=== PATIENT | female | born 1940 | race Caucasian/White ===

== ENCOUNTER 2023-11-13 13:30 | Outpatient (AMB) | payer MEDICARE, SELFPAY ==
--- NOTE | 2023-11-13 13:27 | A.OFFVIS_ITS ---
Intake Vital Signs 11/13/23 13:36 Height 4 ft 9 in Weight 167 lb BMI 36.1 BP 128/72 Blood Pressure Location Rt brachial Position Sitting Pulse 97 Pulse Source Pulse Oximeter Pulse Oximetry (%) 97 Oxygen Delivery Method Room Air Intake Visit Reasons: NEUROSURGICAL NURSE/ Self referral for PAD Intake Note: Pt presents to the office today for a NEUROSURGICAL NURSE self referral for PAD. Pt states she noticed her right foot changing to a bluish color back in 2020. Pt states she also had a blood clot in her left leg back in 2021. Pt states she does wear a support stocking on her left leg but not her right. Allergies alendronate sodium Allergy (Intermediate, Verified 11/13/23 13:39) Swelling fenofibrate Allergy (Intermediate, Verified 11/13/23 13:39) hair loss hydromorphone Allergy (Intermediate, Verified 11/13/23 13:39) Hives dycloxacillin Allergy (Intermediate, Uncoded 11/13/23 13:39) Dizziness HPI NEUROSURGICAL NURSE/ Self referral for PAD HPI Details Pleasant 83-year-old female presents for evaluation regarding her lower extremities. She has persistent pain and discomfort of her lower extremities. She was initially worked up by Orthopedics at [facility] for discoloration of the toes. She at that time she was informed that it was more a vascular issue. She was subsequently referred to Dr. Avalos who suggested intervention for a questionable right iliac occlusion. She was quite concerned about this and is seeking out a 2nd opinion. Of note had discoloration of the right toe. At the current time it appears to be doing relatively well. Upon discussion with her she is able to ambulate a block with her walker. She reports that it is more the bursitis of the hips which has been affecting her than walking distances. In addition in October of 2021 she was diagnosed with a left lower extremity DVT. This was diagnosed at [facility] and she has been maintained on Eliquis since that time. From a past medical history standpoint she quit smoking in and prior to that was smoking nearly a pack a day. In addition she has been a diabetic for greater than 25 years. She is currently being maintained on Eliquis and a statin. She now presents to us for vascular evaluation. [facility] Surgical History (Updated 11/13/23 @ 13:43 by Tea Oneill MA) History of total right knee replacement (~12/17/19) Social History Household Members: None Housing: House Alcohol intake: never Patient Tobacco Use Status: Never used Tobacco Use of substances other than those prescribed or required for medical reasons: No Review of Systems Const All systems reviewed & are unremarkable except as noted in HPI and below Reports no additional complaints ENT Reports Normal hearing present Card Denies chest pain, Denies chest pain at rest, Denies chest pain with activity and Denies pedal edema Resp Denies cough GI Denies abdominal pain Musc Denies abnormal gait, Denies muscle cramps and Denies radiating pain into limb Skin/Breast Denies skin ulcer and Denies wounds Neuro Reports Normal hearing present and Denies abnormal gait Psych Reports no additional complaints Physical Exam Vital Signs: Last Vital Signs Pulse 97 11/13/23 13:36 BP 128/72 11/13/23 13:36 Pulse Ox 97 11/13/23 13:36 Oxygen Delivery Method Room Air 11/13/23 13:36 BMI result Body Mass Index 36.1 Const General: cooperative, healthy appearing and comfortable Orientation/consciousness: oriented to person, oriented to place and oriented to time HEENT Head: Yes normal to inspection Neck Neck: Yes normal visual inspection Carotids: no bruits Chest Chest palpation & inspection: normal inspection of the chest Resp Effort & Inspection: normal respiratory effort and able to speak in complete sentences Auscultation: clear to auscultation bilaterally, no crackles, no rales, no rhonchi and no wheezes Cardio Other: Right side DP and PT signals. Left side palpable posterior tibial pulse Rate: regular rate Rhythm: regular rhythm Heart sounds: S1 normal heart sound present and S2 normal heart sound present Bruits: no carotid bruits Peripheral pulses: Peripheral pulses 2+ throughout GI Inspection: Yes normal to inspection Skin Wounds: no wounds Hair: normal Neuro General: oriented to person, oriented to place and oriented to time Cranial nerves: Yes CN's II-XII intact bilaterally and Yes Normal hearing present Cognition (Neuro): normal cognition Motor exam (neuro): 5/5 motor strength present throughout Extrem Other: venous exam: No significant superficial varicosities or spider telangiectasias, minimal edema General: No clubbing, No cyanosis and No edema Psych Appearance: grossly normal Mental Status: mental status grossly normal Speech and movement: Normal speech and movement present Assessment & Plan Assessment & Plan (1) PAD (peripheral artery disease): Code(s): I73.9 - Peripheral vascular disease, unspecified Plan: In short the patient does have an element of peripheral vascular disease. She does have risk factors including diabetes and a remote history of smoking. That being said I do not believe that this is activity limiting at the current time. I believe her hips are more of an issue. I did discuss this in detail with the patient. I do not believe intervention is indicated at the current time. We did discuss the importance of risk factor modification including strict diabetes control and the importance of walking and exercise. I have taken the liberty of ordering noninvasive arterial testing to get a baseline of that. She will follow up with us after testing. Thank you for allowing us to assist in her care. Should there be any questions or concerns please do not hesitate to contact us. (2) DVT (deep venous thrombosis): Code(s): I82.409 - Acute embolism and thrombosis of unspecified deep veins of unspecified lower extremity Qualifiers: DVT location: lower extremity Affected thrombotic vein of extremity: unspecified vein of extremity Chronicity: chronic Laterality: left Qualified Code(s): I82.502 - Chronic embolism and thrombosis of unspecified deep veins of left lower extremity Plan: She does have a prior history of a DVT. This is dating back to October of 2021. At the current time she is being maintained on Eliquis. At some point would like to reassess the status of her DVT. It does appear that this was an unprovoked event. We will continue to monitor her for her arterial status. Thank you for allowing us to assist in her care. If there are any questions or concerns please do not hesitate to contact us. Plan The patient had an opportunity to ask questions regarding the treatment plan. All questions were answered. Imaging studies, laboratory studies and physical exam results were discussed and reviewed in detail. No major barriers to understanding were identified. The patient expressed understanding and agreement with the above treatment plan. The patient is aware they should contact our office by phone for worsening of the current condition or the appearance of new symptoms. Thank you for allowing me to participate in the vascular care of this patient. If you have any questions or concerns regarding the treatment for the above condition please do not hesitate to contact me. The office telephone contact is [phone]. This note is constructed using voice recognition software. While every effort has been made to ensure accuracy, delivery table feeder errors may have been i ncluded. Thank you for allowing me to participate in the care of your patient. Yours sincerely, Guy Lou MD, FACS, R.P.V.I. 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
[2023-11-13 13:36] VITALS: BP 128/72; PULSE 97; O2SAT 97; BMI 36.1
== END 2023-11-13 14:38 | disposition home or self-care (01) ==
PROVIDERS: Visit Provider Surgery Vascular Surgery
DX: I73.9 Peripheral vascular disease, unspecified (principal); I82.502 Chronic embolism and thrombosis of unspecified deep veins of left lower extremity
CPT/HCPCS: 99203

== ENCOUNTER → 2023-11-13 13:30 | Outpatient (BNVA) | payer MEDICARE, SELFPAY | PROVIDERS: Visit Provider Surgery Vascular Surgery | DX: I73.9 Peripheral vascular disease, unspecified (principal); I82.502 Chronic embolism and thrombosis of unspecified deep veins of left lower extremity | CPT/HCPCS: 99202 ==

== ENCOUNTER 2023-12-10 13:30 | Outpatient (REF) | payer MEDICARE, SELFPAY ==
--- NOTE | ~2023-12-10 | US_ITS ---
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 COMPARISON: None available. TECHNIQUE: The ankle/brachial indices of the distal posterior tibial and the dorsalis pedis arteries were obtained of the lower extremity arterial system bilaterally; along with pressures and pulse volume recordings at the ankle level. The study was performed at rest. Gramajo-scale, color Doppler and spectral Doppler evaluation of the abdominal aorta. FINDINGS: RIGHT LE. THE RIGHT ANKLE-BRACHIAL INDEX IS: 0.72 noncompressibility/calcification. 2. SEGMENTAL PRESSURES (mmHg): Ankle: PT 82, DP 109 3. PVR WAVEFORMS: Ankle: Abnormal 4. DIRECT DUPLEX: Common femoral artery: 56.8 cm/s, monophasic Profunda femoris artery: 39.4 cm/s, monophasic Superficial femoral artery (proximal): 44.6 cm/s, monophasic Superficial femoral artery (mid): 39.4 cm/s, monophasic Superficial femoral artery (distal): 45.8 cm/s, monophasic Proximal Popliteal artery: 44.3 cm/s, monophasic Distal popliteal artery: 49.2 cm/s, monophasic Mid posterior tibial artery: 31 cm/s, monophasic Peroneal artery: Occluded versus calcified LEFT LE. THE LEFT ANKLE-BRACHIAL INDEX IS: 0.79 (higher of the DP/PT) 2. SEGMENTAL PRESSURES: Ankle: PT 120, DP 115 3. PVR WAVEFORMS: Ankle: Normal 4. DIRECT DUPLEX: Common femoral artery: 97.9 cm/s, biphasic Profunda femoris artery: 60.9 cm/s, biphasic Superficial femoral artery (proximal): 97.8 cm/s, biphasic Superficial femoral artery (mid): 77.5 cm/s, biphasic Superficial femoral artery (distal): 77.5 cm/s, Multiphasic Proximal Popliteal artery: 74 cm/s, Multiphasic Distal popliteal artery: 90 cm/s, Multiphasic Mid posterior tibial artery: 68.4 cm/s, Multiphasic Peroneal artery: Occluded versus calcified The aorta is normal. The measurements of the aorta in maximum AP and transverse dimensions respectively are as follows: Proximal: 2.3 cm. Mid: 1.8 cm. Distal: 1.9 cm. PSV: 81.9 cm/s. The common iliac arteries are scattered from view bilaterally to bowel gas and body habitus. Right external iliac artery: 66 cm/sec Left external iliac artery: 110.2 cm/sec US/US arterial duplex BI w/ CAITLIN IMPRESSION: 1. Right leg: Moderate peripheral arterial disease. 2. Left leg: No evidence of hemodynamically significant stenosis. 3. The visualized abdominal aorta is normal in caliber. No evidence of aneurysm. Normal aortic waveforms and systolic velocities.
--- NOTE | ~2023-12-10 | US_ITS ---
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 COMPARISON: None available. TECHNIQUE: The ankle/brachial indices of the distal posterior tibial and the dorsalis pedis arteries were obtained of the lower extremity arterial system bilaterally; along with pressures and pulse volume recordings at the ankle level. The study was performed at rest. Gramajo-scale, color Doppler and spectral Doppler evaluation of the abdominal aorta. FINDINGS: RIGHT LE. THE RIGHT ANKLE-BRACHIAL INDEX IS: 0.72 noncompressibility/calcification. 2. SEGMENTAL PRESSURES (mmHg): Ankle: PT 82, DP 109 3. PVR WAVEFORMS: Ankle: Abnormal 4. DIRECT DUPLEX: Common femoral artery: 56.8 cm/s, monophasic Profunda femoris artery: 39.4 cm/s, monophasic Superficial femoral artery (proximal): 44.6 cm/s, monophasic Superficial femoral artery (mid): 39.4 cm/s, monophasic Superficial femoral artery (distal): 45.8 cm/s, monophasic Proximal Popliteal artery: 44.3 cm/s, monophasic Distal popliteal artery: 49.2 cm/s, monophasic Mid posterior tibial artery: 31 cm/s, monophasic Peroneal artery: Occluded versus calcified LEFT LE. THE LEFT ANKLE-BRACHIAL INDEX IS: 0.79 (higher of the DP/PT) 2. SEGMENTAL PRESSURES: Ankle: PT 120, DP 115 3. PVR WAVEFORMS: Ankle: Normal 4. DIRECT DUPLEX: Common femoral artery: 97.9 cm/s, biphasic Profunda femoris artery: 60.9 cm/s, biphasic Superficial femoral artery (proximal): 97.8 cm/s, biphasic Superficial femoral artery (mid): 77.5 cm/s, biphasic Superficial femoral artery (distal): 77.5 cm/s, Multiphasic Proximal Popliteal artery: 74 cm/s, Multiphasic Distal popliteal artery: 90 cm/s, Multiphasic Mid posterior tibial artery: 68.4 cm/s, Multiphasic Peroneal artery: Occluded versus calcified The aorta is normal. The measurements of the aorta in maximum AP and transverse dimensions respectively are as follows: Proximal: 2.3 cm. Mid: 1.8 cm. Distal: 1.9 cm. PSV: 81.9 cm/s. The common iliac arteries are scattered from view bilaterally to bowel gas and body habitus. Right external iliac artery: 66 cm/sec Left external iliac artery: 110.2 cm/sec US/US abdominal aortic aneurysm IMPRESSION: 1. Right leg: Moderate peripheral arterial disease. 2. Left leg: No evidence of hemodynamically significant stenosis. 3. The visualized abdominal aorta is normal in caliber. No evidence of aneurysm. Normal aortic waveforms and systolic velocities.
== END 2023-12-10 13:31 | disposition home or self-care (01) ==
LOC: HO.US 13:30
PROVIDERS: Visit Provider Surgery Vascular Surgery
DX: I73.9 Peripheral vascular disease, unspecified (principal)
CPT/HCPCS: 76706; 93922; 93925

== ENCOUNTER 2024-01-20 13:05 | Outpatient (AMB) | payer MEDICARE, SELFPAY ==
[2024-01-20 13:10] VITALS: BMI 36.1
--- NOTE | 2024-01-20 13:10 | MHC.OFFVIS ---
Intake Vital Signs 01/20/24 13:10 Height 4 ft 9 in Weight 167 lb BMI 36.1 Intake Visit Reasons: F/U Arterial U/S 12/10/23 Information Interpreted: non-clinical & clinical Accompanied by: Daughter Allergies alendronate sodium Allergy (Intermediate, Verified 01/20/24 13:13) Swelling fenofibrate Allergy (Intermediate, Verified 01/20/24 13:13) hair loss hydromorphone Allergy (Intermediate, Verified 01/20/24 13:13) Hives dycloxacillin Allergy (Intermediate, Uncoded 01/20/24 13:13) Dizziness HPI F/U Arterial U/S 12/10/23 HPI Details Very pleasant 83-year-old female presents for follow-up regarding her lower extremity pain and discomfort. She has been worked up by Orthopedics. In addition she had been seen by Dr. Avalos regarding a right iliac occlusion. He would recommended intervention at that time and came to us for 2nd opinion. Upon discussion with her she is able to walk about a block with her walker. She does report that it is more so the bursitis of the hips that seemed to be an issue for her. In addition in October of 2021 she was diagnosed with a left lower extremity DVT. She has been a longstanding diabetic. She quit smoking in . She is currently being maintained on Eliquis as a statin. She has had noninvasive testing and now presents for follow-up. [facility] Surgical History History of total right knee replacement (~12/17/19) Social History Household Members: None Housing: House Alcohol intake: never Patient Tobacco Use Status: Never used Tobacco Review of Systems Const All systems reviewed & are unremarkable except as noted in HPI and below Reports no additional complaints ENT Reports Normal hearing present Card Denies chest pain, Denies chest pain at rest, Denies chest pain with activity and Denies pedal edema Resp Denies cough GI Denies abdominal pain Musc Denies abnormal gait, Denies muscle cramps and Denies radiating pain into limb Skin/Breast Denies skin ulcer and Denies wounds Neuro Reports Normal hearing present and Denies abnormal gait Psych Reports no additional complaints Physical Exam Vital Signs: BMI result Body Mass Index 36.1 Const General: cooperative, healthy appearing and comfortable Orientation/consciousness: oriented to person, oriented to place and oriented to time HEENT Head: Yes normal to inspection Neck Neck: Yes normal visual inspection Carotids: no bruits Chest Chest palpation & inspection: normal inspection of the chest Resp Effort & Inspection: normal respiratory effort and able to speak in complete sentences Auscultation: clear to auscultation bilaterally, no crackles, no rales, no rhonchi and no wheezes Cardio Other: Bilateral DP signals Rate: regular rate Rhythm: regular rhythm Heart sounds: S1 normal heart sound present and S2 normal heart sound present Bruits: no carotid bruits Peripheral pulses: Peripheral pulses 2+ throughout GI Inspection: Yes normal to inspection Skin Wounds: no wounds Hair: normal Neuro General: oriented to person, oriented to place and oriented to time Cranial nerves: Yes CN's II-XII intact bilaterally and Yes Normal hearing present Cognition (Neuro): normal cognition Motor exam (neuro): 5/5 motor strength present throughout Extrem Other: venous exam: No significant superficial varicosities or spider telangiectasias, minimal edema General: No clubbing, No cyanosis and No edema Psych Appearance: grossly normal Mental Status: mental status grossly normal Speech and movement: Normal speech and movement present Results Reviewed Results Reviewed: Noninvasive testing dated 12/10/2023 demonstrates CAITLIN on the right of 0.72 and on the left 0.79. Right leg there is concern of inflow disease with iliac occlusion. Assessment & Plan Assessment & Plan (1) PAD (peripheral artery disease): Code(s): I73.9 - Peripheral vascular disease, unspecified Plan: In short patient has stable claudication. I did review the findings with her and demonstrated on the posterior. In addition the patient is able to carry out her daily activities. I did review the pathophysiology of peripheral vascular disease with the patient. In addition we did discuss routine conservative measures including a healthy diet and the importance of exercise and ambulation. We did discuss risk factor modification. The patient will continue to to follow-up with surveillance follow-up in approximately 6 months. Thank you for allowing us to participate in this patient's care. If there are any questions or concerns please do not hesitate to contact us. Orders: Orders US arterial duplex LE BI 6 Months I73.9 - Peripheral vascular disease, unspecified Coding Level of Care Code Est Pt Level 4 (45103) Diagnoses PAD (peripheral artery disease) I73.9
== END 2024-01-20 13:53 | disposition home or self-care (01) ==
PROVIDERS: Visit Provider Surgery Vascular Surgery
DX: I73.9 Peripheral vascular disease, unspecified (principal)
CPT/HCPCS: 99213

== ENCOUNTER → 2024-01-20 13:05 | Outpatient (BNVA) | payer MEDICARE, SELFPAY | PROVIDERS: Visit Provider Surgery Vascular Surgery | DX: I73.9 Peripheral vascular disease, unspecified (principal); Z86.718 Personal history of other venous thrombosis and embolism | CPT/HCPCS: 99212 ==

== ENCOUNTER 2025-02-28 13:51 | Outpatient (REF) | payer MEDICARE, SELFPAY ==
--- NOTE | ~2025-02-28 | US_ITS ---
EXAMINATION: Noninvasive assessment of the bilateral lower extremities with ARTERIAL DUPLEX, ANKLE BRACHIAL INDICES (ABIs), and PULSE VOLUME RECORDINGS (PVRs). SPECTRAL DOPPLER ARTERIAL ULTRASOUND ABDOMINAL AORTA AND ILIAC ARTERIES. CLINICAL INFORMATION: Peripheral vascular disease. TECHNIQUE: Duplex Doppler techniques with waveform analysis and measurement of velocities in the bilateral common femoral, profunda femoris, superficial femoral, popliteal and tibial arteries were performed. Additionally, ankle pulse volume recordings, ankle pressure measurements and ankle brachial indices were obtained of the lower extremity arterial system bilaterally. The study was performed only at rest. Color Doppler interrogation of the abdominal aorta and iliac arteries. COMPARISON: None FINDINGS: Calcified plaques throughout the interrogated arteries. Patient's large body habitus. DIRECT DUPLEX DOPPLER FINDINGS: RIGHT LEG: Common femoral artery: 60 cm/s, phasicity: Monophasic. Profunda femoris artery: 26 cm/s, phasicity: Monophasic. Superficial femoral artery (proximal): 48 cm/s, phasicity: Monophasic. Superficial femoral artery (mid): 48 cm/s, phasicity: Monophasic. Superficial femoral artery (distal): 31 cm/s, phasicity: Monophasic. Popliteal artery: 45 cm/s, phasicity: Monophasic. Posterior tibial artery: 43 cm/s, phasicity: Monophasic. Peroneal artery: 35 cm/s, phasicity: Monophasic. Anterior tibial artery: 28 cm/s, phasicity: Monophasic. Dorsalis pedis artery: 27 cm/s, phasicity:Monophasic. LEFT LEG: Common femoral artery: 70 cm/s, phasicity: Biphasic. Profunda femoris artery: 33 cm/s, phasicity: Monophasic. Superficial femoral artery (proximal): 98 cm/s, phasicity: Triphasic Superficial femoral artery (mid): 73 cm/s, phasicity: Triphasic. Superficial femoral artery (distal): 46 cm/s, phasicity: Biphasic. Popliteal artery: 52 cm/s, phasicity: Biphasic. Posterior tibial artery: 40 cm/s, phasicity: Monophasic. Peroneal artery: 42 cm/s, phasicity: Monophasic. Anterior tibial artery: 40 cm/s, phasicity: Monophasic. Dorsalis pedis artery: 10 cm/s, phasicity: Monophasic. BRACHIAL PRESSURES: Right: 144 Left: 135 ANKLE PRESSURES: Right: PT 78, DP 90 Left: PT 152, DP 124 ANKLE-BRACHIAL INDEX: Right: 0.63 Left: 1.06 ANKLE PVR WAVEFORMS: Right: Abnormal Left: Abnormal ABDOMINAL AORTA: Proximal segment measures 2 cm in maximum diameter. No color Doppler interrogation due to patient's body habitus. Midsegment measures 1.7 cm. No color Doppler interrogation due to patient's body habitus. Distal segment: 1.6 cm and peak systolic velocity 56 cm/s Right iliac artery: Common iliac artery: 67 cm/s. External iliac artery: 58 cm/s. Left iliac artery: Common iliac artery: 96 cm/s. External iliac artery: 99 cm/s. US/US arterial duplex BI w/ CAITLIN IMPRESSION: Right leg: Severe inflow disease throughout the interrogated arteries. Left leg: Moderate to severe inflow disease throughout the interrogated arteries. Inadequate evaluation of the abdominal aorta demonstrated no gross aneurysm. CAITLIN Reference: - >1.4 = calcified vessels - 0.9 - 1.4 = normal - no significant arterial disease - 0.7 - 0.89 = mild peripheral arterial disease - 0.51 - 0.69 = moderate peripheral arterial disease - d 0.50 = severe peripheral arterial disease - < .30 = critical arterial disease Electronically signed by: Jairo Singh MD 02/28/2025 03:52 PM EDT
--- OUTSIDE RECORDS SUMMARY | 2025-02-28 15:24 | XMS_ITS | Patient Health Record ---
Author Organization [facility] Address [address] [place] [address] Care Team Providers Care Manager Transport Name Role Phone DR NIRAJ SIFUENTES M.D. Primary Care Provider Unavail able Moriah Willard Unavailable [phone] Allergies Allergen (clinical drug ingredient) Drug/Non Drug Allergy documented on EMR Reaction Allergy Type Onset Date Status alendronate Alendronate Sodium throat constriction Drug Allergy Active dicloxacillin Dicloxacillin Sodium Unknown Drug Allergy Active fenofibrate Fenofibrate hair loss Drug Allergy Act dorinda hydromorphone Hydromorphone Unknown Drug Allergy Active Reason For Referral No Information Medications Medication SIG (Take, Route, Frequency, Duration) Notes Start Date End Date Status Omeprazole 20 MG 2 capsules Orally On ce a day Active metFORMIN HCl ER 500 MG 1 tablet with ev ening meal Orally Once a day Active Nifedical XL 30 MG 1 tablet Orally Once a day Active Eliquis 5 MG 1 tablet Orally Twic e a day for 90 days Active Atorvastatin Calcium 40 MG Oral for 90 Active Vitamin D3 1000 UNIT 1 capsule Orally On ce a day Active Lisinopril 20 MG 1 tablet Orally Once a day Active Caltrate 600+D 600-800 MG-UNIT 1 tablet Orally Twice a day Active Social History Tobacco Use: Social History Observation Description Date Details (start date - stop date) Former Smoker NA - NA Sexual History Question Answer Notes Had sex in the past 12 months (vaginal, oral, or anal)? No AUDIT-C (Standard) Question Answer Notes Did you have a drink containing alcohol in the p ast year? No Points 0 Interpretation Negative Tobacco Control (Standard) Question Answer Notes Tobacco use: Former smoker How long has it been since you last smoked? Grea ter than 10 years Problems Problem Type SNOMED Code ICD Code Onset Dates Problem Status W/U Status Risk Notes Problem Postmenopausal atrophic vaginitis (83499096) Postmenopausal atrophic vaginitis (N95.2) Active confirmed Problem Age-related osteoporosis without current pathological fracture (M81.0) Active confirmed Problem Malignant tumor of lung (935482531) Malignant neoplasm of unspecified part of unspecified bronchus or lung (C34.90) Active confirmed Vital Signs Temperature 97.9 degrees Fahrenheit 02/07/2025 Blood pressure diastolic 76 mm Hg 02/07/2025 Height 4 ft 10 in in 02/07/2025 Blood pressure systolic 128 mm Hg 02/07/2025 Weight 162 lbs 02/07/2025 BMI 33.85 kg/m2 02/07/2025 Encounters Encounter Location Date Provider Diagnosis [address] [place] [address] 02/07/2025 Moriah Willard Encounter for gynecological examination (general) (routine) without abnormal findings Z01.419 ; Encounter for screening mammogram for malignant neoplasm of breast Z12.31 ; Age-related osteoporosis without current pathological fracture M81.0 and Postmenopausal atrophic vaginitis N95.2 Assessments Encounter Date Diagnosis (ICD Code) Assessment Notes Treatment Notes Treatment Clinical Notes Section Notes 02/07/2025 Encounter for gynecological examination (general) (routine) without abnormal findings (ICD-10 - Z01.419) NO MORE PAP TESTS. 02/07/2025 Encounter for screening mammogram for malignant neoplasm of breast (ICD-10 - Z12.31) REGULAR MAMMOGRAMS AND SBE'S WERE RECOMMENDED. 02/07/2025 Age-related osteoporosis without current pathological fracture (ICD-10 - M81.0) DISCUSSED OSTEOPOROSIS AND ITS IMPACT ON HER HEALTH, ADEQUATE CALCIUM AND VIT D. WEIGHT BEARING EXERCISES. OSTEO PRECAUTIONS. REPEAT BMD NEXT YEAR. CONTINUE CARE WITH DR ARRIOLA. 02/07/2025 Postmenopausal atrophic vaginitis (ICD-10 - N95.2) DISCUSSED FINDINGS, DX AND TX OPTIONS. PAT IS ASYMPTOMATIC. Plan Of Treatment Pending Test Test Name Order Date MAMMOGRAM, SCREENING 2021 MAMMOGRAM, SCREENING 02/06/2023 MAMMOGRAM, SCREENING 02/07/2025 BONE DENSITY 02/06/2023 BONE DENSITY 02/07/2025 BONE DENSITY 2021 MM Digital Mammo Screening 2021 MM Digital Mammo Screening 02/06/2023 MM Digital Mammo Screening 02/07/2025 Insurance Providers Payer Name Payer Address Payer Phone Subscriber Number Group Number Insured Name Patient Relationship to Insured Coverage Start Date Coverage End Date MEDICARE [address] [place], [place] [id number] NISREEN SCOTT Self - patient is the insured [facility] [address] [place] [address] [id number] NISREEN SCOTT Self - patient is the insured Medical (General) History Medical History History ICD Code Age-related osteoporosis without current pathological fracture M81.0 Postmenopausal atrophic vaginitis N95.2 Essential (primary) hypertension I10 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
--- OUTSIDE RECORDS SUMMARY | 2025-02-28 15:24 | XMS_ITS | Encounter Summary ---
Author Organization [facility] Address [address] [place] [address] Care Team Providers Care Advertisement Compositor Name Role Phone Unavailable Primary Care Provider Unavailabl e Encounter Details Date Type Department Care Team (Late st Contact Info) Description 11/09/2021 Scanned Document [facility] [place] [address] [address] Cardiology, Scan Social History Tobacco Use Types Packs/Day Years Used Date Smoking Tobacco: Never Assessed Comments Unknown Sex and Gender Information Value Date Recorded Sex Assigned at Not on file Legal Sex Female 4:57 PM EDT Gender Identity Not on file Sexual Orientation Not on file documented as of this encounter Plan of Treatment Not on file documented as of this encounter Visit Diagnoses Not on filedocumented in this encounter
--- OUTSIDE RECORDS SUMMARY | 2025-02-28 15:24 | XMS_ITS | Clinical Summary ---
Author Organization [facility] Address [address] [place] [address] Care Team Providers Care Database Engineer Name Role Phone Unavailable Primary Care Provider Unavailabl e Social History Tobacco Use Types Packs/Day Years Used Date Smoking Tobacco: Never Assessed Comments Unknown Sex and Gender Information Value Date Recorded Sex Assigned at Not on file Legal Sex Female 4:57 PM EDT Gender Identity Not on file Sexual Orientation Not on file Plan of Treatment Health Maintenance Due Date Last Done Comments DTaP/Tdap/Td Vaccines (1 - Tdap) 1959 Pneumococcal Vaccines 50+ (1 of 1 - PCV) 02/01/1988 Zoster (Shingles) Vaccine (1 of 2) 02/01/1988 RSV Vaccine 60 years and old er and Patients (1 - 1-dose 75+ series) 2013 COVID-19 Vaccine (2023-2 5 season) 2024 Hepatitis B Vaccines Aged Out No long er eligible based on patient's age to complete this topic
--- OUTSIDE RECORDS SUMMARY | 2025-02-28 15:24 | XMS_ITS ---
Author Name [facility] Organization Unknown Care Team Organization Name Specialty Phone Email Start Date End [facility]
--- OUTSIDE RECORDS SUMMARY | 2025-02-28 15:24 | XMS_ITS | Continuity of Care Document ---
Author Organization [place] - [facility], [facility] [address] Address [address] [place] [address] Care Team Providers Care Inspector Cold Working Name Role Phone NIRAJ SIFUENTES Primary Care Provider Assessment Encounter Date Assessment Date Assessment LastModified by Organization Details LastModified Time 02/25/2025 02/25/2025 A/ L CMC OA, L index and ring trigger finger, index finger recurrent after 1 prior cortisone injection findings on her exam and imaging have been reviewed. Treatment options for each of these problems have been reviewed. She P/ Elected to try a left thumb CMC injection as well as reinjection in the left index finger flexor tendon sheath and first injection into the left ring finger flexor tendon sheath. Follow-up for each of these problems will be on an as-needed basis. She reports that she has a brace at home that she has been using. justo Not available 02/25/2025 15:13:33 Plan of Treatment Reminders Order Date Submit Date Provider Last Modified By Organization Details Last Modified Time Details Appointments None record ed. Lab None record ed. Referral None record ed. Procedures None record ed. Surgeries None record ed. Imaging XR, hand, 3 or more view - room 114 3V L TMJ 025 02/26/20 [facility], [address], [facility] [address], [place], [address], 14:37:42 Medication Orders None record ed. Patient TargetsNo targets recorded. Patient InstructionsNo instructions recorded. Reason for Referral None Reported. Results Created Date Observation Date Name Description Value Unit Range Abnormal Flag Note LastModifiedBy Organization Detail LastModifiedTime 02/26/20 25 02/25/2025 XR, hand, 3 or more view http:/ [email or web address] ?Encry pted=s hAaTro YD8dLq bEUv6g %2BXZw aYqtaq 0bqfl% 2Fg9IQ a4ajBk vP9nXo QUaueC m3YtLR FvZlgJ JJ8mAn HZtai3 [id number] AC0Kla niHUKu lKiQtr MwF INTERFACE [facility] [address], [place], [address], 02/25/2025 14:03:01 02/26/20 25 02/25/2025 XR, hand, 3 or more view [email or web address] ?Encry pted=s hAaTro YD8dLq bEUv6g %2BXZw aYqtaq 0bqfl% 2Fg9IQ a4ajBk vP9nXo QUaueC m3YtLR FvZlgJ JJ8mAn HZtai3 [id number] AC0Kla niHUKu lKiQtr MwF INTERFACE [facility] [address], [place], [address], 02/25/2025 14:03:05 Result Notes None recorded. 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 4 15:11:19 Problem Notes None recorded. Procedures Surgical History Date Name Laterality Status Provider Name and Address Organization Details Recorded Time 5 [facility] Inj completed Terri Mckoy MD [address], [place], [address], [facility] 02/25/2025 14:11:08 5 JZMulti Trigger Finger Injection completed Terri Mckoy MD [address] [place] [address] [address], [place], [address], [facility] 02/25/2025 14:12:34 Imaging Results None recorded. Procedure Notes None recorded. Medical Equipment None Reported. Allergies Allergen ID Allergen Name Allergen Category Reaction Reaction Severity Criticality Documentation Date Start Date Code Code System Note Provider Name and Address Organization Details Recorded Time 321130 alendrona te sodium medicatio n Not available Not available Not available 02/25/202587101 2 RxNorm JERAMIE MANDY [facility], [facility] 5 13:54:38 991655 cefuroxim e Not available Not available Not available Not available 02/25/2025 2194 RxNorm JERAMIE MANDY [facility] 5 13:54:46 412410 dicloxaci llin medicatio n Not available Not available Not available 02/25/2025 3356 RxNorm JERAMIE MANDY [facility], [facility] 5 13:54:54 874042 fenofibra te medicatio n Not available Not available Not available 02/25/2025 8703 RxNorm JERAMIE MANDY [facility], [facility] 5 13:55:02 196105 hydromorp jacque medicatio n Not available Not available Not available 02/25/2025 3423 RxNorm JERAMIE MANDY [facility], [facility] 5 13:55:11 125850 lisinopri l medicatio n Not available Not available Not available 02/25/2025 75504 RxNorm JERAMIE MANDY [facility], [facility] 5 13:55:19 Medications Name Sig Start Date Stop Date Status Note LastModified by Organization Details LastModified Time nifedipine ER 30 mg tablet,exte nded release 24 hr active Not Available Not Available Not Available amoxicillin 500 mg capsule TAKE 4 CAPSULES BY MOUTH 1 HOUR BEFORE PROCEDURE active Not Available Not Available No t Available atorvastati n 40 mg tablet active Not Available Not Available Not Available metformin 500 mg tablet active Not Available Not Available Not Available cetirizine 10 mg tablet TAKE 1 TABLET BY MOUTH EVERY DAY active Not Available Not Available No t Available prochlorper azine maleate 5 mg tablet TAKE 1 TABLET BY MOUTH EVERY 6 HOURS NEEDED FOR NAUSEA active Not Available Not Available No t Available meloxicam 15 mg tablet TAKE 1 TABLET BY MOUTH EVERY NIGHT AT BEDTIME active Not Available Not Available No t Available lisinopril 20 mg tablet active Not Available Not Available Not Available prednisone 20 mg tablet TAKE 3 TABS BY MOUTH DAILY X5 DAYS, 2+1/2 TABS DAILY X7 DAYS, 2 TABS DAILY X7 DAYS, 1+1/2 TABS DAILY X7 DAYS, 1 TAB DAILY X7 DAYS, THEN 1/2 TAB DAILY X7 DAYS active Not Available Not Available No t Available tramadol 50 mg tablet TAKE 1 TABLET BY MOUTH TWICE DAILY FOR 7 DAYS NEEDED FOR PAIN. DO NOT DRIVE WHILE TAKING THIS MEDICATIO N active Not Available Not Available No t Available ondansetron 8 mg disintegrat ing tablet DISSOLVE 1 TABLET ON THE TONGUE EVERY 8 HOURS NEEDED FOR NAUSEA OR VOMITING active Not Available Not Available No t Available lidocaine-p rilocaine 2.5 %-2.5 % topical cream APPLY A DIME-SIZE D AMOUNT OVER PORT AND COVER WITH PLASTIC 1 HOUR BEFORE PORT USE active Not Available Not Available No t Available famotidine 20 mg tablet TAKE 1 TABLET BY MOUTH TWICE DAILY active Not Available Not Available No t Available nitrofurant oin macrocrysta l 100 mg capsule TAKE 1 CAPSULE BY MOUTH TWICE DAILY FOR 5 DAYS active Not Available Not Available No t Available omeprazole 20 mg capsule,del ayed release active Not Available Not Available Not Available gabapentin 100 mg capsule TAKE 1 CAPSULE BY MOUTH 1 TIME AT BEDTIME active Not Available Not Available No t Available Ventolin HFA 90 mcg/actuati on aerosol inhaler active Not Available Not Available Not Available nitrofurant oin monohydrate /macrocryst als 100 mg capsule TAKE 1 CAPSULE BY MOUTH TWICE DAILY FOR 7 DAYS WITH FOOD active Not Available Not Available No t Available oxycodone HCl-oxycodo ne-ASA 1 every 4 - 6 hours as needed prn painDO NOT DRIVE WHILE TAKING THIS MEDICATIO N 01/07 completed Statu s: 'Disc ontin ued'; Not Available Not Available Not Available Accu-Chek Angelique Plus test strips TEST BLOOD GLUCOSE EVERY DAY active Not Available Not Available No t Available Eliquis 5 mg tablet active Not Available Not Available No t Available Accu-Chek Fastclix Lancet Drum USE TO TEST BLOOD SUGAR DAILY active Not Available Not Available No t Available Vitals Date Recorded Body height Body mass index (BMI) Body weight Provider Name and Address Organization Details Last Updated DateTime 02/25/2025 144.78 cm 35.1 kg/m2 29220.96 g JERAMIE GAVLAN [place] - [facility] 02/25/2025 13:51:31 Social History None recorded. Functional Status None recorded. Mental Status None recorded. Family History Nothing Reported. Medical History No medical history recorded. Gynecological HistoryNo gynecological history recorded. Obstetrics History GPAL:G 0 P 0 0 0 0 Past Encounters Encounter ID Performer Location Encounter Start Date Encounter Closed Date Diagnosis/Indication Diagnosis SNOMED-CT Code Diagnosis ICD10 Code Diagnosis Note [id number] MD [facility] [place] [address] [facility] [place] [address] 02/25/2025 13:31:00 02/25/2025 15:14:42 Pain of left hand 2336734695 43336 M79.642 Triggering of digit 2399 05508 M65.322 M65.342 Health Concerns Section Related Observation LastModified by Organization Detai ls LastModified Time None Recorded Concern Status LastModified by Organization Details LastModified Time None Recorded Payers Encounter Date Sequence Insurance Name Policy Number Policy De [place] Covered Member ID De La Paz Member ID Guarantor Name 02/25/2025 1 [place]IC[place]: [employer] Dianaeder Salas [employer] [id number] Emily Candelario 02/25/2025 2 [employer] OPTIONS (MEDICARE SUPPLEMENT) Emily Candelario [id number] Emily Candelario Notes Date Note Type Note Provider Name and Address Organization Details Recorded Time 02/25/2025 text/html Patient is an 85-year-old female last seen in May 2023 for a left index trigger finger, here today for eval of left hand pain, she has thumb pain, and recurrent L index trigger finger, as well as a new left ring trigger. Her Left thumb is aggravated by pinch and siphoner activities. Terri Mckoy MD [address] [facility] [address], [place], [address], [facility] - [facility] 02/25/2025 15:14:41 OBGyn Episode No OBEpisode recorded.
--- OUTSIDE RECORDS SUMMARY | 2025-02-28 15:25 | XMS_ITS | Clinical Summary ---
Author Organization [facility] Address [address] [place] [address] Care Team Providers Care Gardening Instructor Name Role Phone Raul Salinas MD Primary Care Provider [phone] Allergies Active Allergy Reactions Criticality Noted Date Comments Dicloxacillin 08/01/2020 Fenofibrate 08/01/2020 Medications Medication Sig Dispensed Refills Start Date End Date Status lisinopril (PRINIVIL,ZESTRIL) tablet 10 mg Take 10 mg by mouth daily. 0 Active NIFEdipine (PROCARDIA XL) 30 MG 24 hr tablet Take 30 mg by mouth daily. 0 Active aspirin 81 MG EC tablet Take 81 mg by mouth daily. 0 Active omeprazole (PriLOSEC) 20 MG capsule Take 20 mg by mouth daily. 0 Active hydrOXYzine (ATARAX) 10 MG tablet Take 10 mg by mouth 3 (three) times a day as needed for itching. 0 Active vitamin D3 (VITAMIN D3) 25 MCG (1000 UT) tablet Take 1,000 Units by mouth 3 (three) times a week. 0 Active metFORMIN (GLUCOPHAGE) tablet 500 mg Take 500 mg by mouth every morning with breakfast. 0 Active pravastatin (PRAVACHOL) tablet 20 mg Take 20 mg by mouth daily. 0 Active Calcium Carbonate-Vit D-Min (CALTRATE 600+D PLUS MINERALS) 600-800 MG-UNIT CHEW Chew by mouth. 0 Active Newberry-3 Fatty Acids (FISH OIL) 1000 MG CAPS Take by mouth. 0 Active Social History Tobacco Use Types Packs/Day Years Used Date Smoking Tobacco: Never Assessed Sex and Gender Information Value Date Recorded Sex Assigned at Not on file Gender Identity Not on file Sexual Orientation Not on file Last Filed Vital Signs Vital Sign Reading Time Taken Comments Blood Pressure 140/82 09/25/2020 2:35 PM EST Pulse - - Temperature - - Respiratory Rate - - Oxygen Saturation - - Inhaled Oxygen Concentration - - Weight 79.4 kg (175 lb) 09/25/2020 2:35 PM EST Height 147.3 cm (4' 10 ) 09/25/2020 2:35 PM EST Body Mass Index 36.58 09/25/2020 2:35 PM EST Plan of Treatment Health Maintenance Due Date Last Done Comments COVID-19 Vaccine (#1) 1938 Depression Screening 1950 BMI Counseling 02/01/1956 Preventative Health Evaluation 02/01/1956 DTap / Tdap / Td (1 - Tdap) 1957 Shingrix-Zoster Vaccine (1 of 2) 02/01/1988 Fall Risk Assessment 2003 Osteoporosis Screening (DEXA Scan) 2003 Pneumococcal Vaccine (1 of 1 - PCV) 2003 RSV Adult > 60+ Yrs or Pregn ant (1 - 1-dose 75+ series) 2013 Influenza Vaccine (#1) 2024 Hepatitis B Vaccines Aged Out No long er eligible based on patient's age to complete this topic RSV Ped < 20 months Aged Out No longe r eligible based on patient's age to complete this topic Care Teams Gardening Instructor Relationship Specialty Start Date End Date Raul Salinas MD [address] [place] [address] PCP - General [facility] [employer] 08/01/20
--- OUTSIDE RECORDS SUMMARY | 2025-02-28 15:25 | XMS_ITS ---
Author Organization [facility] Address [address] [address] Care Team Providers Care Molding Supervisor Name Role Phone DR NIRAJ SIFUENTES M.D. 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] Problem Status W/U Status Risk Notes Problem Malignant neoplasm of unspecified part of unspecified bronchus or lung (C34.90) Active confirmed Vital Signs Temperature 97.9 degrees Fahrenheit 02/08/20 25 Blood pressure systolic 128 mm Hg 02/08/20 25 Blood pressure diastolic 76 mm Hg 025 Height 4 ft 10 in in 02/07/2025 Weight 162 lbs 02/07/2025 BMI 33.85 kg/m2 02/07/2025 Encounters Encounter Location Date Provider Diagnosis [address] [place] [address] 02/07/2025 Moriah Willard Encounter for gynecological examination [...] OPTIONS. PAT IS ASYMPTOMATIC. Plan Of Treatment Treatment Notes Assessment Notes Encounter for gynecological examination (general) (routine) without abnormal findings NO MORE PAP TESTS. Encounter for screening mamm ogram for malignant neoplasm of breast REGULAR MAMMOGRAMS AND SBE'S WERE RECOMMENDED. Age-related osteoporosis wit hout current pathological fracture DISCUSSED OSTEOPOROSIS AND ITS IMPACT ON HER HEALTH, ADEQUATE CALCIUM AND VIT D. WEIGHT BEARING EXERCISES. OSTEO PRECAUTIONS. REPEAT BMD NEXT YEAR. CONTINUE CARE WITH DR ARRIOLA. Postmenopausal atrophic vaginitis DISCUSSED FINDINGS, DX AND TX OPTIONS. PAT IS ASYMPTOMATIC. Pending Test Test Name Order Date MAMMOGRAM, SCREENING 02/07/2025 BONE DENSITY 02/07/2025 MM Digital Mammo Screening 02/07/2025 Next Appt Details Follow Up: 2 YEARS OR Phyllis GIBSON: Progress Notes * JOAN SCOTTOB:1940 (85 yo F)Acc No.[id number]:02/07/2025 PROGRESS NOTES Patient:?NISREEN SCOTT Appointment Provider:?Moriah bravo M.D. :1940???Age:85 Y???Sex:Female D ate:02/07/2025 Address:[address] [place] [address] Pcp:DR NIRAJ SIFUENTES M.D. 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 EDGARD ENTERED MENOPAUSE IN HER 50'S.? SHE IS A AND NOT SEXUALLY ACTIVE.?? 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 SHE WAS GIVEN BOTH CHEMOTHERAPY AND IMMUNOTHERAPY.? REPEAT CT SCAN RECENTLY SHOWED RESOLUTION OF LUNG LESIONS.? EVEN HER DOCTORS WERE AMAZED AT THE FINDINGS.? SHE CONTINUES TO BE FOLLOWED. SHE IS A KNOWN TYPE 2 DIABETIC.? SHE WAS NOTED TO HAVE AFIB A FEW MONTHS AGO AND WAS PLACED ON ELIQUIS.? SHE HAD LASER TREATMENT AND HER HEART IS NOW BACK TO NORMAL SINUS RHYTHM.? SHE HAD RIGHT KNEE REPLACEMENT IN NOV 2020.?? HER LAST MAMMOGRAM DONE IN NOV 2024 SHOWED AN ASYMMETRY ON THE LEFT BREAST AND INCREASED TISSUE DENSITY ON THE RIGHT BREAST.? BILATERAL DIAGNOSTIC MAMMOGRAMS WERE RECOMMENDED.? EDGARD HAS SCHEDULED THESE. HER LAST PAP TEST IN 2013 WAS NEGATIVE.? SHE HAS NO HX OF ABNORMAL PAP TESTS. SHE IS KNOWN TO BE OSTEOPOROTIC AND SEES DR ARRIOLA.? SHE IS ON PROLIA AND HER T-SCORE AT THE FEMORAL NECK IMPROVED FROM -3.0 IN 2021 TO -2.6 IN 2023. SHE HAD A COLONOSCOPY DONE IN 2012. ???Annual:? Patient presents for annual exam, ages 60-85, postmenopausal. ?General Health Maintenance:?Current breast complaints:?no breast pain, mass, discharge, or skin changes ?Urinary problems:?patient reports no urinary health problems or bowel health problems ?Calcium intake:?takes adequate calcium via diet and supplementation ?Significant PHOTOCOPYING MACHINE OPERATOR problems:?no significant field tax auditor symptoms or problems * ROS:?general:?no?chest pain.?no?palpitations.?no?headache.?no?cough.?no?shortness of breath.?no?fever.?no?unexplained weight loss.?no?nausea/vomiting.?no?change in bowel movements.?no blood in stool.?no?genitourinary complaints.?no?skin complaints.? * Medical History:? * Sample Carrier History:?/ Para?12/27.?Sexual activity?not currently sexually active.?Last Pap Smear:?08/2014, neg.?Mammogram:?01/31/25 < 50% density, 01/29/24 < 50% density, 01/27/23 < 50% density, 11/21/20 < 50% density, 11/11/19 < 50% density, 11/10/18 < 50% density, 11/03/17 Breast Tissue is Almost Entirely Fatty, 10/2016 , normal.?Abnormal Pap Smear:?no history of abnormal pap smears.?LMP and menses?menopause.?History of STD's:?none.?Colonoscopy?yes 2012.?Bone Density:?01/29/24, 01/24/22, 11/11/19, 11/07/17, 08/2015.? * OB History:?Total pregnancies?3.?Total living children?2 1 at infancy.?NVD?3.? Children?1 AT [facility].? * Surgical History:?Bilateral Tubal Ligation 1981Tumor removed Rt facial cheek 1989Cystectomy Rt armpit Right Knee Replacement 11/2020 * Hospitalization/Major Diagno stic Procedure:?3 Vaginal Deliveries Colitis 01/2013Hemorroidectomy 05/2010 * Family History:?Mother: dece ased.?Father: .?Paternal Grand Mother: , breast cancer.? : , Bladder Cancer. * Social History:?Tobacco Use:?Tobacco Control (Standard)?Tobacco use:?Former smoker ?How long has it been since you last smoked??Greater than 10 years ???Sexual History:?Sexual History?Had sex in the past 12 months (vaginal, oral, or anal)??No ?Details of Sexual History?Are you sexually active??No ???Drugs/Alcohol:?Drugs?Have you used drugs other than those for medical reasons in the past 12 months??No ???Miscellaneous:?Children: yes. ?Exercise: yes. ?Marital status: . ?Natural support system: yes. ?Occupation: Retired. ?Sexually active: no. ???Drug/Alcohol:?AUDIT-C (Standard)?Did you have a drink containing alcohol in the past year??No ?Points?0 ?Interpretation?Negative * Medications:?TakingLisinopri l 20 MG Tablet 1 tablet Orally Once a day Nifedical XL 30 MG Tablet Extended Release 24 Hour 1 tablet Orally Once a day Eliquis 5 MG Tablet 1 tablet Orally Twice a day Atorvastatin Calcium 40 MG Tablet Oral Vitamin D3 1000 UNIT Capsule 1 capsule Orally Once a day Omeprazole 20 MG Capsule Delayed Release 2 capsules Orally Once a day metFORMIN HCl ER 500 MG Tablet Extended Release 24 Hour 1 tablet with evening meal Orally Once a day Caltrate 600+D 600-800 MG-UNIT Tablet 1 tablet Orally Twice a day Medication List reviewed and reconciled with the patientTaking Lisinopril 20 MG Tablet 1 tablet Orally Once a day Taking Nifedical XL 30 MG Tablet Extended Release 24 Hour 1 tablet Orally Once a day Taking Eliquis 5 MG Tablet 1 tablet Orally Twice a day Taking Atorvastatin Calcium 40 MG Tablet Oral Taking Vitamin D3 1000 UNIT Capsule 1 capsule Orally Once a day Taking Omeprazole 20 MG Capsule Delayed Release 2 capsules Orally Once a day Taking metFORMIN HCl ER 500 MG Tablet Extended Release 24 Hour 1 tablet with evening meal Orally Once a day Taking Caltrate 600+D 600-800 MG-UNIT Tablet 1 tablet Orally Twice a day Medication List reviewed and reconciled with the patient * Allergies:?Fenofibrate: hair loss - AllergyAlendronate Sodium: throat constriction - AllergyDicloxacillin Sodium: AllergyHydromorphone: Allergyno[Allergies Verified] Objective: * Vitals:?Ht: 4 ft 10 in, Wt: 162 lbs, BMI:33.85Index, BP: 128/76 mm Hg, Temp: 97.9 F. * Examination: ???General Exam: ?CONSTITUTIONAL:?General Appearance:?alert, in no acute distress, normal, well nourished ?NECK/THYROID:?Inspection/Palpation:?normal ?Thyroid:?normal size and shape ?RESPIRATORY:?Auscultation: clear to auscultation bilaterally, Respiratory Effort: normal.?CARDIOVASCULAR:?Auscultation: regular rate and rhythm.?BREAST, Right:?Inspection/Palpation:?no discharge, no masses present, no nipple retraction, no skin changes, no skin dimpling, no tenderness, no lymphadenopathy, no axillary mass, no axillary tenderness ?BREAST, Left:?Inspection/Palpation:?no discharge, no masses present, no nipple retraction, no skin changes, no skin dimpling, no tenderness, no lymphadenopathy, no axillary mass, no axillary tenderness ?GASTROINTESTINAL:?Abdomen:?no masses, nontender, nondistended ?Liver and Spleen:?normal ?Hernias:?no hernias present, no inguinal adenopathy ?MUSCULOSKELETAL:?Inspection/Palpation:?no clubbing, cyanosis, or edema ?SKIN:?Skin:?normal ?NEURO/PSYCH:?Orientation:?time , place, person ?Mood/Affect:?normal?Genitourinary: ?EXTERNAL GENITALIA:?External Genitalia:?normal, no lesions ?VAGINA:?Vagina:?atrophic vaginal tissue, minimal moisture ?BLADDER:?Bladder:?no mass, nontender ?URETHRA:?Urethra:?no erythema or lesions present ?CERVIX:?Cervix:?no lesions, nontender ?UTERUS:?Uterus:?nontender, normal contour, normal mobility, normal size ?ADNEXA:?Adnexa:?no masses, no tenderness ?ANUS AND PERINEUM:?Anus/Perineum:?visually normal??? Assessment: * Assessment: 1.?Encounter for gynecologic al examination (general) (routine) without abnormal findings - Z01.419 (Primary)???2.?Encounter for screening mammogram for malignant neoplasm of breast - Z12.31???3.?Age-related osteoporosis without current pathological fracture - M81.0???4.?Postmenopausal atrophic vaginitis - N95.2??? Plan: * Treatment: 2.?Encounter for screening m ammogram for malignant neoplasm of breast?Imaging: MM Digital Mammo Screening Notes: REGULAR MAMMOGRAMS AND SBE'S WERE RECOMMENDED.?? 3.?Age-related osteoporosis without current pathological fracture?Imaging: BONE DENSITY Notes: DISCUSSED OSTEOPOROSIS AND ITS IMPACT ON HER HEALTH, ADEQUATE CALCIUM AND VIT D. WEIGHT BEARING EXERCISES. OSTEO PRECAUTIONS. REPEAT BMD NEXT YEAR. CONTINUE CARE WITH DR ARRIOLA.?? 4.?Postmenopausal atrophic v aginitis? Notes: DISCUSSED FINDINGS, DX AND TX OPTIONS. PAT IS ASYMPTOMATIC.?? * Imaging:? * ?Imaging: MAMMOGRAM, SCR EENING * Procedure Codes:? * Preventive Medicine:? ??YOUR PREVENTIVE WELLNESS PLAN:?Osteoporosis prevention?Calcium, D, strength training.?Breast Cancer Screening (Mammogram):?annually.?Cervical Cancer Screening (Pap Smear):?q 3 years with HPV screen.?Colorectal Cancer Screening:?q 10 years.? * Follow Up:?2 YEARS OR PRN * Images: Billing Information: * Visit Code:? [id number] Preventive Care Est Pt. Age 65 and over. * Procedure Codes:? * Sign off status: Completed true * Appointment Provider:?Moriah Willard M.D. Date:?02/07/2025 Generated for Caitlyn estrada/Abraham/Brennon on:?02/28/2025 03:24 PM EDT History and Physical Notes * HPI (History of Present Illness) Category Sub-Category Detail Notes Category Not es New/Follow-up Patient Consult PAT ENTERED MENOPAUSE IN HER 50'S. SHE IS A AND NOT SEXUALLY ACTIVE. SHE WAS DIAGNOSED TO HAVE STAGE 4 LUNG CA LAST YEAR. SHE WAS GIVEN BOTH CHEMOTHERAPY AND IMMUNOTHERAPY. REPEAT CT SCAN RECENTLY SHOWED RESOLUTION OF LUNG LESIONS. EVEN HER DOCTORS WERE AMAZED AT THE FINDINGS. SHE CONTINUES TO BE FOLLOWED. SHE IS A KNOWN TYPE 2 DIABETIC. SHE WAS NOTED TO HAVE AFIB A FEW MONTHS AGO AND WAS PLACED ON ELIQUIS. SHE HAD LASER TREATMENT AND HER HEART IS NOW BACK TO NORMAL SINUS RHYTHM. SHE HAD RIGHT KNEE REPLACEMENT IN NOV 2020. HER LAST MAMMOGRAM DONE IN NOV 2024 SHOWED AN ASYMMETRY ON THE LEFT BREAST AND INCREASED TISSUE DENSITY ON THE RIGHT BREAST. BILATERAL DIAGNOSTIC MAMMOGRAMS WERE RECOMMENDED. PAT HAS SCHEDULED THESE. HER LAST PAP TEST IN 2013 WAS NEGATIVE. SHE HAS NO HX OF ABNORMAL PAP TESTS. SHE IS KNOWN TO BE OSTEOPOROTIC AND SEES DR ARRIOLA. SHE IS ON PROLIA AND HER T-SCORE AT THE FEMORAL NECK IMPROVED FROM -3.0 IN 2021 TO -2.6 IN 2023. SHE HAD A COLONOSCOPY DONE IN 2012. 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 MACHINE OPERATOR problems:: n o significant field tax auditor symptoms or problems Examination Category Sub-Category Detail Notes Category Not es General Exam CONSTITUTIONAL: General Appearan ce:: alert, in no acute distress, normal, well nourished NECK/THYROID: Thyroid:: normal size and shape Inspection/Palpation:: normal RESPIRATORY: Auscultation: clear to auscultation bilaterally, Respiratory Effort: normal CARDIOVASCULAR: Auscultation: regula r rate and rhythm GASTROINTESTINAL: Abdomen:: no masses, nontender , nondistended Liver and Spleen:: normal Hernias:: no hernias present, no inguina l adenopathy MUSCULOSKELETAL: Inspection/Palpation:: no clubb ing, cyanosis, or edema SKIN: Skin:: normal NEURO/PSYCH: Mood/Affect:: normal Orientation:: time , place, person BREAST, Right: Inspection/Palpation :: no discharge, no masses present, no nipple retraction, no skin changes, no skin dimpling, no tenderness, no lymphadenopathy, no axillary mass, no axillary tenderness BREAST, Left: Inspection/Palpation :: no discharge, no masses present, no nipple retraction, no skin changes, no skin dimpling, no tenderness, no lymphadenopathy, no axillary mass, no axillary tenderness Genitourinary EXTERNAL GENITALIA: External Genitalia:: nor mal, no lesions VAGINA: Vagina:: atrophic vaginal tissue , minimal moisture BLADDER: Bladder:: no mass, nontender URETHRA: Urethra:: no erythema or lesions present CERVIX: Cervix:: no lesions, nontender UTERUS: Uterus:: nontender, normal conto ur, normal mobility, normal size ADNEXA: Adnexa:: no masses, no tendernes s ANUS AND PERINEUM: Anus/Perineum:: visually norm al
== END 2025-02-28 13:52 | disposition home or self-care (01) ==
LOC: HO.US 13:51
PROVIDERS: PCP Internal Medicine; Visit Provider Surgery Vascular Surgery
DX: I73.9 Peripheral vascular disease, unspecified (principal)
CPT/HCPCS: 76706; 93922; 93925

== ENCOUNTER → 2025-02-28 13:54 | Outpatient (BNV) | payer MEDICARE, SELFPAY | PROVIDERS: PCP Internal Medicine; Visit Provider Radiology Diagnostic Radiology | DX: I73.9 Peripheral vascular disease, unspecified (principal); I25.84 Coronary atherosclerosis due to calcified coronary lesion | CPT/HCPCS: 76706; 93922; 93925 ==

== ENCOUNTER 2025-03-08 13:51 | Outpatient (AMB) | payer MEDICARE, SELFPAY ==
--- NOTE | 2025-03-08 13:53 | A.OFFVIS_ITS ---
Intake Visit Reasons: overdue 6m follow up s/p Arterial US 02/28/25 Intake Note: Patient presents for follow arterial US. US performed on 02/28/25. No complaints. Accompanied by: Self / Same As Patient Allergies alendronate sodium Allergy (Intermediate, Verified 03/08/25 13:55) Swelling fenofibrate Allergy (Intermediate, Verified 03/08/25 13:55) hair loss hydromorphone Allergy (Intermediate, Verified 03/08/25 13:55) Hives dycloxacillin Allergy (Intermediate, Uncoded 01/20/24 13:13) Dizziness HPI HPI overdue 6m follow up s/p Arterial US 02/28/25: Details: The patient is an 85-year-old female presenting with an arterial surveillance follow-up. She reports feeling generally tired in her legs, associating this with her bilateral hip bursitis, which restricts her walking distance unless using a rollator for assistance. Previously normal circulation in the left leg has remained stable, Despite the reduced right-sided circulation, the patient is able to walk close to a block, slow-paced, before needing to stop. The capacity she has is largely influenced by bursitis, believed to contribute more to discomfort than peripheral artery disease. Both hips experience pain, with the left being predominantly affected initially during ambulation. She has a history of knee replacement, with varicose veins and spider veins apparent on examination; however, they are not presently symptomatic. The patient experiences morning cramps, alleviated by activity, which she reports have reoccurred. Her history of osteoarthritis, especially of the hands, has been debilitating, previously requiring cortisone injections for relief. Subsequent x-rays indicated bone abnormalities that correlate with her reported symptoms. She now presents for routine arterial surveillance follow-up. [facility] Surgical History History of total right knee replacement (~12/17/19) Social History Household Members: None Housing: House Alcohol intake: never Patient Tobacco Use Status: Never used Tobacco Review of Systems Const All systems reviewed & are unremarkable except as noted in HPI and below Reports no additional complaints ENT Reports Normal hearing present Card Denies chest pain, Denies chest pain at rest, Denies chest pain with activity and Denies pedal edema Resp Denies cough GI Denies abdominal pain Musc Denies abnormal gait, Denies muscle cramps and Denies radiating pain into limb Skin/Breast Denies skin ulcer and Denies wounds Neuro Reports Normal hearing present and Denies abnormal gait Psych Reports no additional complaints Physical Exam Const General: cooperative, healthy appearing and comfortable Orientation/consciousness: oriented to person, oriented to place and oriented to time HEENT Head: Yes normal to inspection Neck Neck: Yes normal visual inspection Carotids: no bruits Chest Chest palpation & inspection: normal inspection of the chest Resp Effort & Inspection: normal respiratory effort and able to speak in complete sentences Auscultation: clear to auscultation bilaterally, no crackles, no rales, no rhonchi and no wheezes Cardio Other: Bilateral DP signals Rate: regular rate Rhythm: regular rhythm Heart sounds: S1 normal heart sound present and S2 normal heart sound present Bruits: no carotid bruits GI Inspection: Yes normal to inspection Skin Wounds: no wounds Hair: normal Neuro General: oriented to person, oriented to place and oriented to time Cranial nerves: Yes CN's II-XII intact bilaterally and Yes Normal hearing present Cognition (Neuro): normal cognition Motor exam (neuro): 5/5 motor strength present throughout Extrem Other: venous exam: No significant superficial varicosities or spider telangiectasias, minimal edema General: No clubbing, No cyanosis and No edema Psych Appearance: grossly normal Mental Status: mental status grossly normal Speech and movement: Normal speech and movement present Results Reviewed Results Reviewed: Noninvasive arterial testing demonstrates CAITLIN on the right of 0.63 and on the left of 1.06 this was on testing dated 02/28/2025. Assessment & Plan Assessment & Plan (1) PAD (peripheral artery disease): Code(s): I73.9 - Peripheral vascular disease, unspecified Category: Medical Plan: In short patient has stable claudication. I did review the pathophysiology of peripheral vascular disease with the patient. In addition we did discuss routine conservative measures including a healthy diet and the importance of exercise and ambulation. We did discuss risk factor modification. The patient will continue to to follow-up with surveillance follow-up in approximately 1 year. Thank you for allowing us to participate in this patient's care. If there are any questions or concerns please do not hesitate to contact us. Plan Patient was informed and verbally consented to the use of an ambient scribe for clinic note documentation during this visit. Orders: Orders US arterial duplex LE BI 1 Year I73.9 - Peripheral vascular disease, unspecified Patient Instructions: - Continue using the rollator to aid in ambulation. - Schedule and attend a follow-up ultrasound in one year. - Notify of any significant changes in symptoms or if new symptoms develop. - Maintain current activity level within comfort and tolerance. - Manage osteoarthritis symptoms following established protocols for pain relief. Coding Level of Care Code Est Pt Level 4 (13446) Complex EM visit Add On G2211 Diagnoses PAD (peripheral artery disease) I73.9
--- OUTSIDE RECORDS SUMMARY | 2025-03-08 15:01 | XMS_ITS | Continuity of Care Document ---
Author Organization [facility] [place] Address [address] [place] [address]- Care Team Providers Care Hydraulics Engineer Name Role Phone Kailey Orourke MD Primary Care Physician Encounter 04/09/24 - 03/02/25 [facility] [address], [facility] [address] [place], [place] [address] Attending Physician: Moriah Willard MD Admitting Physician: Moriah Willard MD Referring Physician: Moriah Willard MD Encounter Type: Pre-Outpt Allergies, Adverse Reactions, Alerts Substance Criticality Severity Reaction Reaction Severity Status cefuroxime Active HYDROmorphone hives, tongue swelling Active dicloxacillin dizzy Active lisinopril Active alendronate myalgias/haoir loss Active fenofibrate Active Immunizations Given and Recorded Vaccine Date Status Refusal Reason influenza virus vaccine, inactivated 08/31/24 Give n influenza virus vaccine, inactivated 08/19/22 Give n influenza virus vaccine, inactivated 08/31/21 Give n influenza virus vaccine, inactivated 07/27/20 Give n influenza virus vaccine, inactivated 07/27/20 Give n influenza virus vaccine, inactivated 08/19/19 Give n influenza virus vaccine, inactivated 07/25/16 [place] rded influenza virus vaccine, inactivated 07/24/15 Give n influenza virus vaccine, inactivated 07/26/14 Give n influenza virus vaccine, inactivated 1 9/18/13 Gi yaa pneumococcal 23-valent vaccine 06/10/24 Given zoster vaccine, inactivated 02/13/24 Recorded SARS-CoV-2(COVID-19)mRNA-LNP vac(anc009) 02/09/24 Recorded RSV vaccine preF3, recombinant 09/11/23 Recorded SARS-CoV-2 mRNA (vggjuqs-hodx-dbmnv) vax 03/18/22 Given SARS-CoV-2 (COVID-19) mRNA BNT-162b2 vac 01/08/21 Recorded SARS-CoV-2 (COVID-19) mRNA BNT-162b2 vac 12/15/20 Recorded hepatitis B adult vaccine 08/30/20 Given hepatitis B adult vaccine 09/22/19 Given hepatitis B adult vaccine 08/19/19 Given tetanus/diphtheria/pertussis, acel(Tdap) 01/14/19 Given pneumococcal 13-valent vaccine 01/23/15 Given Fluzone Preservative-Free (oldterm) 07/07/12 Given Influenza Virus Vaccine (oldterm) 08/16/11 Given Influenza Virus Vaccine (oldterm) 2 08/04/09 Given Influenza Virus Vaccine (oldterm) 09/15/08 Given Influenza Virus Vaccine (oldterm) 07/27/07 Given FluLaval (oldterm) 3 08/09/10 Given Zostavax (oldterm) 01/25/09 Given Tetanus Toxoid Vaccine (oldterm) 11/07/08 Given Pneumococcal Vaccine (oldterm) 4 12/30/03 Given tetanus-diphtheria toxoids (Td) 5 12/29/98 Given 1Admin Note: FLUARIX 2Admin Note: GIVEN BY RAMO 3Admin Note: [facility] [id number] given 4Admin Note: historical data 5Admin Note: historical data Medications Accu check Angelique plus test strips Accu check Angelique plus test strips, See Instructions, # 50 each, Refills 11, Tot. Refills 11, Maintenance, to test blood sugar daily E11.9 CHITO- lifetime, 07/29/22 3:18:00 PM EDT, Supply, 147, cm, 03/18/22 11:20:00 EDT, Height Start Date: 07/29/22 Status: Ordered Quantity: 50.0 Unit: each Repeat number: 12 Accu-Chek Angelique Plus Test Strips See Instructions, # 50 each, Refills 11, Tot. Refills 11, Maintenance, Dx: E11.29; pt test 1x daily, 06/21/24 1:19:00 PM EDT, Compound, 147, cm, 06/21/24 9:32:00 EDT, Height, 69.7, kg, 06/21/24 9:32:00 EDT, Dry Weight Start Date: 06/21/24 Status: Ordered Quantity: 50.0 Unit: each Repeat number: 12 cetirizine 10 mg oral capsule 1 capsule = 10 mg, By Mouth, Daily, # 90 capsule, 1 Refills, Maintenance, 11/16/24 12:28:00 PM EST, [facility], Partial fill upon patient request if the prescription is for a schedule II opioid drug., 145, cm, 10/26/24 11:05:00 EST, Height, 72.3, kg, 10/26/24 11:05:00 EST, Dry Weight Start Date: 11/16/24 Status: Ordered Quantity: 90.0 Unit: capsule Repeat number: 2 Compression Stockings See Instructions, # 1 each, Refills 1, Tot. Refills 1, Maintenance, surgical, knee length 20-30 mm Hg, 11/05/22 1:44:00 PM EST, Supply, 147, cm, 10/22/22 18:27:00 EST, Height Start Date: 11/05/22 Status: Ordered Quantity: 1.0 Unit: each Repeat number: 2 Indication: Venous insufficiency (chronic) (peripheral) cranial prosthesis cranial prosthesis, See Instructions, # 1 each, Refills 0, Tot. Refills 0, Maintenance, Use as instructed. Dx: L65.8, T45.1X5A, 08/09/24 5:14:00 PM EDT, Supply Start Date: 08/09/24 Status: Ordered Quantity: 1.0 Unit: each Repeat number: 1 Eliquis 5 mg oral tablet 1 tablet, By Mouth, 2 times a day, # 180 tablet, 3 Refills, Maintenance, 02/24/25 9:40:00 PM EDT, [facility], 145, cm, 02/16/25 10:24:00 EDT, Height, 73.9, kg, 02/16/25 10:24:00 EDT, Dry Weight Start Date: 02/24/25 Status: Ordered Quantity: 180.0 Unit: tablet Repeat number: 1 famotidine 20 mg oral tablet 20 mg, 1, tablet, By Mouth, 2 times a day, # 180 tablet, Refills 1, Tot. Refills 1, Maintenance, 11/16/24 12:28:00 PM EST, Route to Pharmacy Electronically, [facility], Partial fill upon patient request if the prescription is for a schedule II opioid drug., 145, cm, 10/26/24 11:05:00 EST, Height, 72.3, kg, 10/26/24 11:05:00 EST, Dry Weight Start Date: 11/16/24 Status: Ordered Quantity: 180.0 Unit: tablet Repeat number: 2 Juxtafit Knee-high Compression Garments(bilateral, left, right) with 2 pairs of liners Juxtafit Knee-high Compression Garments(bilateral, left, right) with 2 pairs of liners, See Instructions, # 1 each, Refills 1, Tot. Refills 1, Maintenance, as directed, 11/05/22 1:45:00 PM EST, Supply, 147, cm, 10/22/22 18:27:00 EST, Height Start Date: 11/05/22 Status: Ordered Quantity: 1.0 Unit: each Repeat number: 2 Indication: Venous insufficiency (chronic) (peripheral) lidocaine-prilocaine 2.5%-2.5% topical cream See Instructions, Apply dime-sized amount over port and cover with plastic, 1 hour before port use,# 30 Gm, 1 Refills, Maintenance, 06/03/24 5:13:00 PM EDT, [id number], Partial fill upon patient request if the prescription is for a schedule II opioid drug., Apply dime-sized amount over port and cover with plastic, 1 hour before port use, 145.9, cm, 05/28/24 14:10:00 EDT, Height, 72.3, kg, 05/28/24 14:10:00 EDT, Dry Weight Start Date: 06/03/24 Status: Ordered Quantity: 30.0 Unit: g Repeat number: 2 metFORMIN 500 mg oral tablet 1 tablet, By Mouth, 2 times a day, # 180 tablet, 1 Refills, Maintenance, 11/10/24 9:46:00 AM EST, [facility], 145, cm, 10/26/24 11:05:00 EST, Height, 72.3, kg, 10/26/24 11:05:00 EST, Dry Weight Start Date: 11/10/24 Status: Ordered Quantity: 180.0 Unit: tablet Repeat number: 1 NIFEdipine (Eqv-Procardia XL) 30 mg oral tablet, extended release 1 tablet, By Mouth, Daily, # 90 tablet, 3 Refills, Maintenance, 02/10/25 8:45:00 PM EDT, [facility], 145, cm, 02/02/25 11:24:00 EDT, Height, 74.8, kg, 12/15/24 10:31:00 EST, Dry Weight Start Date: 02/10/25 Status: Ordered Quantity: 90.0 Unit: tablet Repeat number: 1 ondansetron 8 mg oral tablet, disintegrating 1 tablet = 8 mg, By Mouth, Every 8 hours, PRN Nausea & Vomiting, # 10 tablet, 1 Refills, Maintenance, 06/03/24 5:12:00 PM EDT, Tablet, [facility] #[id number], Partial fill upon patient requestif the prescription is for a schedule II opioid drug., 145.9, cm, 05/28/24 14:10:00 EDT, Height, 72.3, kg, 05/28/24 14:10:00 EDT, Dry Weight Start Date: 06/03/24 Status: Ordered Quantity: 10.0 Unit: tablet Repeat number: 2 prochlorperazine 5 mg oral tablet 1 tablet = 5 mg, By Mouth, Every 6 hours, PRN Nausea, # 30 tablet, 1 Refills, Maintenance, 06/03/24 5:12:00 PM EDT, [facility] #[id number], Partial fill upon patient request if the prescription isfor a schedule II opioid drug., 145.9, cm, 05/28/24 14:10:00 EDT, Height, 72.3, kg, 05/28/24 14:10:00 EDT, Dry Weight Start Date: 06/03/24 Status: Ordered Quantity: 30.0 Unit: tablet Repeat number: 2 Vitamin D3 1000 intl units oral capsule 1 capsule = 25 mcg, By Mouth, Daily, 0 Refills, Maintenance, 09/22/23 1:33:00 PM EST, Partial fill upon patient request if the prescription is for a schedule II opioid drug. 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, 3 Confirmed Active Diverticulosis Confirmed Active Encounter for monitoring long-term proton pump inhibitor therapy Confirmed Active Familial hyperlipidemia Confirmed Active Gastro-esophageal reflux egd 2008 01 Confirmed Active Glaucoma suspect Confirmed Active History of DVT of lower extremity Confirmed Active History of basal cell carcinoma (BCC) of skin 2002 2018 Confirmed Active History of arthroplasty of right knee Confirmed 12/17/19 Active Hypercoagulable state Confirmed Active Intermittent vertigo Confirmed Active Osteoporosis DR boris Cavazos Jul 2022 5, 6, 7, 8, 9, 10, 11, 12 Confirmed Active Left leg pain Confirmed Active Peripheral artery disease aortolilaic on ct 2021;DR Avalos Confirmed 03/17/22 Active Popliteal cyst left 13 Confirmed Active Severe obesity (BMI 35.0-39.9) with comorbidity Confirmed Active 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 Confirmed Active Fatty liver 14, 15, 16, 17 Confirmed Active Tear of medial meniscus of knee rt 18 Confirmed Active 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 RT 0.56 left wnl bl[place] Confirmed 12/12/21 Active 1seeing hand surgeon 2diabetic 3has seen dieticain, aware pre diabetes, RISK diabetese 4egd 2007 5rheumatology;rubens incorrect study,likshantly osteioenia,no antiresorptive rx 6prolia too expensive 7alendronate int6ol 8normal pth 9normal tsh spep 10 AP Spine (L1-L4) 1.083 0.3 2.9 Normal Femoral Neck (Left) 0.508 -3.1 -0.9 Osteoporotic Total Hip (Left) 0.888 -0.4 1.5 Normal 11Bone Density: Region BMD T-score Z-score Classification AP Spine (L1-L4) 1.031 -0.1 2.3 Normal Femoral Neck (Left) 0.599 -2.3 -0.1 Osteopenic Total Hip (Left) 0.898 -0.4 1.5 Normal 10-year Fracture Risk(1): Major Osteoporotic Fracture 14% Hip Fracture 3.8% 12GYN following 13left 14normal iron 15HEP A pos neg BC 16normal spep 17workup 18per MRI/ortho Social History Social History Type Response Smoking Status Former smoker; Type: Cigarettes; Tobacco use times per day: 1 PPD; Number of years: 39; Total pack years: 39; Started at age: 17; Stopped at age: 56; entered on: 10/14/14 Sex Female Sex Representation Female (finding) Patient Care team information Care Team Personnel Name: Linda Esquivel RN Position: S [place] RN Member Role: Primary Care Nurse Name: Kortney Pinedo RN Position: S RN Member Role: Primary Care Nurse Name: Kailey Orourke MD Position: S Physician - Primary Care Member Role: PCP Address: [address] [place] [address] Telecom: Name: Swathi Rajan RN Position: S [place] RN Member Role: Primary Care Nurse Name: Milagros Ochoa RN Position: S [place] RN Member Role: Primary Care Nurse Name: Ness Fleming RN Position: S RN Member Role: Primary Care Nurse Name: Adrian Freeman RN Position: S Onco RN Member Role: Primary Care Nurse Name: Jania Marcial RN Position: S [place]co RN Member Role: Primary Care Nurse Name: Mary Jo Orozco RN Position: S RN Member Role: Primary Care Nurse Name: Troy Mccabe RN Position: S RN Member Role: Primary Care Nurse Name: Tea Jiang RN Position: S RN Member Role: Primary Care Nurse Name: Valerie Hamm RN Position: [facility] Onco RN Member Role: Primary Care Nurse Name: Miriam Sena RN Position: S RN Member Role: Primary Care Nurse Care Team Related Persons Name: EFRAIN CORNELIUS Insurance Providers Guarantor name: NISREEN SCOTT Health Plan Information #: 2 Payer: [facility] [employer] Member Number: [id number] Policy Number: NA Group Number: NA Health Plan Information #: 1 Payer: MEDICARE PART B OUTPT Member Number: [id number] Policy Number: NA Group Number: NA
--- OUTSIDE RECORDS SUMMARY | 2025-03-08 15:01 | XMS_ITS | Patient Health Record ---
Author Organization [facility] Address [address] [place] [address] Care Team Providers Care Shipwright Apprentice Name Role Phone DR NIRAJ SIFUENTES M.D. Primary Care Provider Unavail able Moriah Willard Unavailable [phone] Allergies Allergen (clinical drug ingredient) Drug/Non Drug [...] Status Risk Notes Problem Postmenopausal atrophic vaginitis (53140928) Postmenopausal atrophic vaginitis (N95.2) Active confirmed Problem Age-related osteoporosis (630491873) Age-related osteoporosis without current pathological fracture (M81.0) Active confirmed Problem Malignant neoplasm of unspecified part of unspecified bronchus or lung (C34.90) Active confirmed Vital Signs Temperature 97.9 degrees Fahrenheit 02/07/2025 Blood pressure diastolic 76 mm Hg 02/07/2025 Height 4 ft 10 in in 02/07/2025 Blood pressure systolic 128 mm Hg 02/07/2025 Weight 162 lbs 02/07/2025 BMI 33.85 kg/m2 02/07/2025 Encounters Encounter Location Date Provider Diagnosis Total [email or web address] [facility] [address] [address] 02/07/2025 Moriah Willard Encounter for gynecological examination (general) (routine) without abnormal findings Z01.419 ; Encounter for screening mammogram for malignant neoplasm of breast Z12.31 ; Age-related osteoporosis without current pathological fracture M81.0 and Postmenopausal atrophic vaginitis N95.2 Total [employer] [facility] [address] [address] 03/01/2025 Moriah Willard Assessments Encounter Date Diagnosis (ICD Code) Assessment [...] MEDICARE [address] [place], [place] [id number] NISREEN SCOTT Self - patient is the insured [facility] [address] [place] [address] [id number] NISREEN SCOTT Self - patient is the [...]
--- OUTSIDE RECORDS SUMMARY | 2025-03-08 15:01 | XMS_ITS | Data Portability ---
Author Organization [facility], [facility] Address [address] [place] [address] Care Team Providers Care Engineering Group Leader Name Role Phone NIRAJ SIFUENTES Primary Care Provider [phone] Assessment Encounter Date Assessment Date Assessment LastModified [...] at home that she has been using. [email or web address] Not available 02/25/2025 15:13:33 Plan of Treatment Reminders Order Date Submit Date Provider Last Modified By Organization Details Last Modified Time Details Appointments None record ed. Lab None record ed. Referral None record ed. Procedures None record ed. Surgeries None record ed. Imaging XR, hand, 3 or more view - room 114 3V L TMJ 025 02/26/20 25 [email or web address] [address], [address], [place], [address], 5 07:51:03 XR, knee, 3 view - RM 201//R TKR WITH AL 2019 024 04/22/20 24 [email or web address] [facility], [address], [address], [place], [address], 12:05:06 Medication Orders None record ed. Patient TargetsNo targets recorded. Patient InstructionsNo instructions recorded. Reason for Referral None Reported. Results Created Date Observation Date Name Description Value Unit Range Abnormal Flag Note LastModifiedBy Organization Detail LastModifiedTime 04/12/20 24 04/13/2024 CBC WITH DIFFE RENTI AL/PL ATELE T WBC 11.5 x10e3 /uL 3.4-10 .8 above high normal Not Available [facility] ([facility]) [address] [place], [address], 04/13/2024 16:06:58 04/12/20 24 04/13/2024 CBC WITH DIFFE RENTI AL/PL ATELE T RBC 4.24 x10e6 /uL 3.77-5 .28 Not Available [facility] ([facility]) [address] [place], [address], 04/13/2024 16:06:58 04/12/20 24 04/13/2024 CBC WITH DIFFE RENTI AL/PL ATELE T hemoglobin 12.2 g/dL 11.1-1 5.9 Not Available [facility] ([facility]) [address] [place], [address], 04/13/2024 16:06:58 04/12/20 24 04/13/2024 CBC WITH DIFFE RENTI AL/PL ATELE T hematocrit 38.4 % 34.0-4 6.6 Not Available [facility] ([facility]) [address] [place], [address], 04/13/2024 16:06:58 04/12/20 24 04/13/2024 CBC WITH DIFFE RENTI AL/PL ATELE T MCV 91 fL 79-97 Not Available [facility] ([facility]) [address] [place], [address], 04/13/2024 16:06:58 04/12/20 24 04/13/2024 CBC WITH DIFFE RENTI AL/PL ATELE T MCH 28.8 pg 26.6-3 3.0 Not Available [facility] ([facility]) [address] [place], [address], 04/13/2024 16:06:58 04/12/20 24 04/13/2024 CBC WITH DIFFE RENTI AL/PL ATELE T MCHC 31.8 g/dL 31.5-3 5.7 Not Available [facility] ([facility]) [address], [place], [address], 04/13/2024 16:06:58 04/12/20 24 04/13/2024 CBC WITH DIFFE RENTI AL/PL ATELE T RDW 12.7 % 11.7-1 5.4 Not Available [facility] ([facility]) [address], [place], [address], 04/13/2024 16:06:58 04/12/20 24 04/13/2024 CBC WITH DIFFE RENTI AL/PL ATELE T platelets 416 x10e3 /uL 150-45 0 Not Available [facility] ([facility]) [address], [place], [address], 04/13/2024 16:06:58 04/12/20 24 04/13/2024 CBC WITH DIFFE RENTI AL/PL ATELE T neutrophils 69 % not estab. Not Available [facility] ([facility]) [address], [place], [address], 04/13/2024 16:06:58 04/12/20 24 04/13/2024 CBC WITH DIFFE RENTI AL/PL ATELE T lymphs 17 % not estab. Not Available [facility] ([facility]) [address] [place], [address], 04/13/2024 16:06:58 04/12/20 24 04/13/2024 CBC WITH DIFFE RENTI AL/PL ATELE T monocytes 11 % not estab. Not Available [facility] ([facility]) [address], [place], [address], 04/13/2024 16:06:58 04/12/20 24 04/13/2024 CBC WITH DIFFE RENTI AL/PL ATELE T eos 3 % not estab. Not Available [facility] ([facility]) [address], [place], [address], 04/13/2024 16:06:58 04/12/20 24 04/13/2024 CBC WITH DIFFE RENTI AL/PL ATELE T basos 0 % not estab. Not Available [facility] ([facility]) [address], [place], [address], 04/13/2024 16:06:58 04/12/20 24 04/13/2024 CBC WITH DIFFE RENTI AL/PL ATELE T immature cells DIRECTOR OF SOLUTIONS ARCHITECTURE Not Available [facility] ([facility]) [address] [place], [address], 04/13/2024 16:06:58 04/12/20 24 04/13/2024 CBC WITH DIFFE RENTI AL/PL ATELE T neutrophils (absolute) 7.8 x10e3 /uL 1.4-7. 0 above high normal Not Available [facility] ([facility]) [address] [place], [address], 04/13/2024 16:06:58 04/12/20 24 04/13/2024 CBC WITH DIFFE RENTI AL/PL ATELE T lymphs (absolute) 2.0 x10e3 /uL 0.7-3. 1 Not Available [facility] ([facility]) [address] [place], [address], 04/13/2024 16:06:58 04/12/20 24 04/13/2024 CBC WITH DIFFE RENTI AL/PL ATELE T monocytes(ab solute) 1.3 x10e3 /uL 0.1-0. 9 above high normal Not Available [facility] ([facility]) [address], [place], [address], 04/13/2024 16:06:58 04/12/20 24 04/13/2024 CBC WITH DIFFE RENTI AL/PL ATELE T eos (absolute) 0.4 x10e3 /uL 0.0-0. 4 Not Available [facility] ([facility]) [address], [place], [address], 04/13/2024 16:06:58 04/12/20 24 04/13/2024 CBC WITH DIFFE RENTI AL/PL ATELE T baso (absolute) 0.1 x10e3 /uL 0.0-0. 2 Not Available [facility] ([facility]) [address], [place], [address], 04/13/2024 16:06:58 04/12/20 24 04/13/2024 CBC WITH DIFFE RENTI AL/PL ATELE T immature granulocytes 0 % not estab. Not Available [facility] ([facility]) [address], [place], [address], 04/13/2024 16:06:58 04/12/20 24 04/13/2024 CBC WITH DIFFE RENTI AL/PL ATELE T immature grans (abs) 0.0 x10e3 /uL 0.0-0. 1 Not Available [facility] ([facility]) [address], [place], [address], 04/13/2024 16:06:58 04/12/20 24 04/13/2024 CBC WITH DIFFE RENTI AL/PL ATELE T NRBC DIRECTOR OF SOLUTIONS ARCHITECTURE Not Available [facility] ([facility]) [address], [place], [address], 04/13/2024 16:06:58 04/12/20 24 04/13/2024 CBC WITH DIFFE RENTI AL/PL ATELE T hematology comments: DIRECTOR OF SOLUTIONS ARCHITECTURE Not Available [facility] ([facility]) [address], [place], [address], 04/13/2024 16:06:58 04/12/20 24 04/13/2024 SEDIM ENTAT ION RATE- WESTE RGREN sedimentatio n rate-westerg omuar 79 mm/HR 0-40 above high normal Not Available [facility] ([facility]) [address], [place], [address], 04/13/2024 16:06:58 04/12/20 24 04/13/2024 C-TASH CTIVE PROTE IN, QUANT C-reactive protein, quant 9 mg/L 0-10 Not Available [facility] ([facility]) [address], [place], [address], 04/13/2024 16:06:59 04/22/20 24 04/22/2024 XR, knee, 3 view [email or web address] ?Encry pted=s hAaTro YD8dLq bEUv6g %2BXZw aYqtaq 0bqfl% 2Fg9IQ a4ajBk vP9nXo QUaueC m3YtLR FvZl [place] [address] 4p3550 AC0Kpa n6CVKX eUC8mr 84%3D INTERFACE [facility] [address], [place], [address], 04/22/2024 10:26:21 04/22/20 24 04/22/2024 XR, knee, 3 view [email or web address] ?Encry pted=s hAaTro YD8dLq bEUv6g %2BXZw aYqtaq 0bqfl% 2Fg9IQ a4ajBk vP9nXo QUaueC m3YtLR FvZlgJ JJ8mAn [facility] 2k5602 AC0Kpa n6CVKX eUC8mr 84%3D INTERFACE [facility] [address], [place], [address], 04/22/2024 10:26:23 06/25/20 24 01/10/2020 imagi ng/di agnos tic resul t No observ ation record ed. [email or web address] Not Available 05/29 05:29:27 06/25/20 24 01/10/2020 imagi ng/di agnos tic resul t No observ ation record ed. [email or web address] Not Available 05/29 05:29:28 06/25/20 24 08/11/2023 imagi ng/di agnos tic resul t No observ ation record ed. [email or web address] Not Available 05/29 05:30:07 06/25/20 24 07/01/2023 imagi ng/di agnos tic resul t No observ ation record ed. [email or web address] Not Available 05/29 05:30:12 02/26/20 25 02/25/2025 XR, hand, 3 or more view [email or web address] ?Encry pted=s hAaTro YD8dLq bEUv6g %2BXZw aYqtaq 0bqfl% 2Fg9IQ a4ajBk vP9nXo QUaueC m3YtLR FvZlgJ JJ8mAn HZtai3 7q6343 AC0Kla niHUKu lKiQtr MwF INTERFACE [facility] [address] [facility] [address], [place], [address], 02/25/2025 14:03:01 02/26/20 25 02/25/2025 XR, hand, 3 or more view [email or web address]:/ [email or web address] ?Encry pted=s hAaTro YD8dLq bEUv6g %2BXZw aYqtaq 0bqfl% 2Fg9IQ a4ajBk vP9nXo QUaueC m3YtLR FvZlgJ JJ8mAn HZtai3 4d9333 AC0a niHUKu lKiQtr MwF INTERFACE [facility] [address], [place], [address], 02/25/2025 14:03:05 Result Notes None recorded. 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 Procedures Surgical History Date Name Laterality Status Provider Name and Address Organization Details Recorded Time 5 JZCMC Inj completed Terri Mckoy MD [address] [facility], [place], [address], [facility] 02/25/2025 14:11:08 5 JZMulti Trigger Finger Injection completed Terri Mckoy MD [address], [place], [address], [facility] 02/25/2025 14:12:34 Imaging Results Imaging Date Name Status LastModified by Organiz ation Details LastModified Time 04/22/2024 XR, knee, 3 view completed INTERFACE [facility] [address], [place], [address], 04/22/2024 10:26:21 04/22/2024 XR, knee, 3 view completed INTERFACE [facility] [address], [place], [address], 04/22/2024 10:26:23 01/10/2020 imaging/diag nostic result completed Information not available 06/25/2024 05:29:27 01/10/2020 imaging/diag nostic result completed Information not available 06/25/2024 05:29:28 08/11/2023 imaging/diag nostic result completed Information not available 06/25/2024 05:30:07 07/01/2023 imaging/diag nostic result completed Information not available 06/25/2024 05:30:12 02/25/2025 XR, hand, 3 or more view completed [facility] [address], [place], [address], 02/25/2025 14:03:01 02/25/2025 XR, hand, 3 or more view completed [facility] [address], [place], [address], 02/25/2025 14:03:05 Procedure Notes None recorded. Medical Equipment None Reported. Allergies Allergen ID Allergen Name Allergen Category Reaction Reaction Severity Criticality Documentation Date Start Date Code Code System Note Provider Name and Address Organization Details Recorded Time 411994 alendrona te sodium medicatio n Not available Not available Not available 02/25/202534160 2 RxNorm JERAMIE MANDY [facility], [facility] 5 13:54:38 797974 cefuroxim e Not available Not available Not available Not available 02/25/2025 2194 RxNorm JERAMIE MANDY [facility], [facility] 5 13:54:46 624551 dicloxaci llin medicatio n Not available Not available Not available 02/25/2025 3356 RxNorm JERAMIE MANDY [facility], [facility] 5 13:54:54 042980 fenofibra te medicatio n Not available Not available Not available 02/25/2025 8703 RxNorm JERAMIE MANDY [facility], [facility] 5 13:55:02 863614 hydromorp jacque medicatio n Not available Not available Not available 02/25/2025 3423 RxNorm JERAMIE MANDY [facility], [facility] 5 13:55:11 179886 lisinopri l medicatio n Not available Not available Not available 02/25/2025 26190 RxNorm JERAMIE MANDY [place] [facility] [place] [facility] 5 13:55:19 Medications Name Sig Start Date [...] t Available Vitals Date Recorded Body height Provider Name an d Address Organization Details Last Updated DateTime 04/22/2024 149.86 cm ELSA MARK [facility] 04/22/2024 10:13:58 Date Recorded Body height Body mass index (BMI) Body weight Provider Name and Address Organization Details Last Updated DateTime 02/25/2025 144.78 cm 35.1 kg/m2 42646.96 g JERAMIE GALVAN [facility] 02/25/2025 13:51:31 Social History None recorded. Functional Status None recorded. Mental Status None recorded. Family History Nothing Reported. Medical History No medical history recorded. Gynecological HistoryNo gynecological history recorded. Obstetrics History GPAL:G 0 P 0 0 0 0 Past Encounters Encounter ID Performer Location Encounter Start Date Encounter Closed Date Diagnosis/Indication Diagnosis SNOMED-CT Code Diagnosis ICD10 Code Diagnosis Note [id number] [facility] [address] [place] [address] 04/22/2024 09:27:45 05/19/2024 12:05:05 History of right total knee replacement 7775394145 857804 Z96.392 [id number] MD [facility] [address] [place] [address] 02/25/2025 13:31:00 03/02/2025 07:51:03 Pain of left hand 7215072867 83628 M79.642 Triggering of digit 2399 79209 M65.322 M65.342 Health Concerns Section Related Observation LastModified by Organization Detai ls LastModified Time None Recorded Concern Status LastModified by Organization Details LastModified Time None Recorded Advance Directives Directive None Recorded Payers Encounter Date Sequence Insurance Name Policy Number Policy [place] Covered Member ID [place] Member ID Guarantor Name 04/22/2024 1 [place] Pansy Josue Kodak [id number] Dianay Josue Kodak 04/22/2024 2 [employer] OPTIONS (MEDICARE SUPPLEMENT) Emily Salas [place] [id number] Dianay M Kodak 02/25/2025 1 [place] Pansy M Kodak [id number] Pansy M [place] 02/25/2025 2 [employer] OPTIONS (MEDICARE SUPPLEMENT) Emily Salas [employer] [id number] Emily Salas [place] Notes Date Note Type Note Provider Name and Address Organization Details Recorded Time 04/22/2024 text/html I am seeing the patient today under the supervision of Dr. Arzola who was available but who did not see the patient.History:Naya montalvo woman presents if her Right knee pain. She is status post right total knee replacement. She states she has a bulge and anterior aspect of her knee. Reports no injury. Notices some irritability with walking as well as getting up from a seated position. Denies any fevers or chills.PMH/PSH/MEDS /ALL/FMH/SOC HX/ROS are reviewed in detail per my medical intake sheet.Of note:Recently diagnosed with lung cancer.General Exam: Vital signs are as noted belowMental status: Alert and lucid. 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 No spasticity or clonus noted.Extremities:C hoffman are soft non tender, skin intact.Orthopedic Examination:Patient has a negative straight leg raise bilaterally.Right Hip:[ ] Hip exam shows no tenderness to palpation. There is full range of motion throughout all planes without irritability. There is full muscle strength. There is negative straight leg raise. Negative for signs of impingement.Right Knee:Minimal parapatellar tenderness. Tenderness at the pes anserine bursal area. Mildly the medial hamstrings. No effusion, erythema or per there is a slight area of soft tissue swelling in the anterolateral aspect of the patella which is worrisome. No intra-articular effusion, erythema or warmth.Full strength and sensation distally.X-rays: Radiographs 3 views Of the right knee were obtained and reviewed today in the office of the right knee reveal excellent pleasure to faces and alignment some slight lateral tilt of the patella.Assessment: Patellofemoral Irritability with hamstring irritability right kneePLAN: Recommend a course of physical therapy. She did have a mildly elevated white blood count and a mildly elevated sedimentation rate but given her recent diagnosis not unexpected. Knee does not appear infected at this point. Follow up with us as needed.[employer] speech recognition environmental construction engineer software was used to create portions of this document. An attempt at proofreading has been made to minimize errors. Please call for corrections. Igor Mina PA-C [address], [place], [address], [facility] 04/27/2024 08:27:29 02/25/2025 text/html Patient is an 85-year-old female last seen in May 2023 for a left index trigger finger, here today for eval of left hand pain, she has thumb pain, and recurrent L index trigger finger, as well as a new left ring trigger. 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 Terri Mckoy MD [address], [place], [address], [facility] 02/25/2025 15:14:41 OBGyn Episode No OBEpisode recorded.
--- OUTSIDE RECORDS SUMMARY | 2025-03-08 15:01 | XMS_ITS | Encounter Summary ---
Author Organization [facility] Address [address] [place] [address] Care Team Providers Care Php Wordpress Developer Name Role Phone Unavailable Primary Care Provider Unavailabl e Encounter Details Date Type Department Care Team (Late st Contact Info) Description 11/09/2021 Scanned Document [facility] [address] [address] Cardiology, Scan Social History Tobacco [...]
--- OUTSIDE RECORDS SUMMARY | 2025-03-08 15:01 | XMS_ITS | Clinical Summary ---
Author Organization [facility] Address [address] [place] [address] Care Team Providers Care Lace Finisher Name Role Phone Raul Salinas MD Primary Care Provider [phone] Allergies Active Allergy Reactions Criticality Noted Date [...] MG-UNIT CHEW Chew by mouth. 0 Active [place]-3 Fatty Acids (FISH OIL) 1000 MG CAPS [...] age to complete this topic Care Teams Lace Finisher Relationship Specialty Start Date End Date Raul Salinas MD [address] [place] [address] PCP - General Enterprise Application Administrator 08/01/20
--- OUTSIDE RECORDS SUMMARY | 2025-03-08 15:01 | XMS_ITS | Clinical Summary ---
Author Organization [facility] Address [address] [place] [address] Care Team Providers Care Category Planner Name Role Phone Unavailable Primary Care Provider [...]
== END 2025-03-08 14:14 | disposition home or self-care (01) ==
LOC: HO.HVS 13:52
PROVIDERS: PCP Internal Medicine; Visit Provider Surgery Vascular Surgery
DX: I73.9 Peripheral vascular disease, unspecified (principal)
CPT/HCPCS: 99214; G2211

== ENCOUNTER → 2025-03-08 13:51 | Outpatient (BNVA) | payer MEDICARE, SELFPAY | PROVIDERS: PCP Internal Medicine; Visit Provider Surgery Vascular Surgery | DX: I73.9 Peripheral vascular disease, unspecified (principal) | CPT/HCPCS: 99212 ==